=== PATIENT | female | born 1975 | race Caucasian/White ===

== ENCOUNTER 2016-12-15 20:47 | Emergency (ER) | payer OTHER ==
[2014-01-23 17:12] VITALS: BMI 45.0
[~2016-12-15 20:47] MED LIST: HYDROCODONE-APA1 TAB PO
== END 2016-12-16 00:10 | disposition home or self-care (01) ==
LOC: D.ER 20:47
DX: S90.861A Insect bite (nonvenomous), right foot, initial encounter (principal); W57.XXXA Bitten or stung by nonvenomous insect and other nonvenomous arthropods, initial encounter; Y93.89 Activity, other specified; Y92.89 Other specified places as the place of occurrence of the external cause; T78.40XA Allergy, unspecified, initial encounter; X58.XXXA Exposure to other specified factors, initial encounter; L03.115 Cellulitis of right lower limb; F17.200 Nicotine dependence, unspecified, uncomplicated

== ENCOUNTER 2020-10-17 21:23 | Inpatient (IN) | payer OTHER ==
[~2020-10-17] VITALS: Ht 165.1 cm; Wt 113.4 kg
[2020-10-17] MEDS ORDERED: CIPRO500 MG PO (21:42)
[2020-10-17] MEDS ORDERED: MACROBID100 MG PO (21:42)
[2020-10-17] MEDS ORDERED: LISINOPRIL5 MG PO (21:42)
[2020-10-17] MEDS ORDERED: HYDROCHLOROTH12.5 M1 PO (21:44)
[2020-10-17] MEDS ORDERED: GLUCOPHAGE500 MG PO (21:44)
[2020-10-17 22:12] LABS: BASOPHILS 0.3 % (0-2); BILIRUBIN 3+ (NEGATIVE); EOSINOPHILS 2.9 % (0-7); HEMATOCRIT 39.9 % (36.0-48.0); HEMOGLOBIN 13.4 g/dL (12-16); IMMATURE GRANULOCYTES 0.8 % (0-5); KETONE NEGATIVE (NEGATIVE); LYMPHOCYTE ABS# 1.54 10x3/uL (1.18-3.74); LYMPHOCYTES 23.8 % (15-50); MCH 29.5 pg (26.0-34.0); MCHC 33.6 g/dL (31.0-37.0); MCV 87.9 fL (80.0-100.0); MEAN PLATELET VOLUME 9.7 fL (7.4-10.4); MONOCYTES 8.3 % (2-11); NEUTROPHIL ABS# 4.13 10x3/uL (1.56-6.13); NEUTROPHILS 63.9 % (40-80); NITRITE NEGATIVE (NEGATIVE); RBC 4.54 10x6/uL (4.00-5.40); RDW 17.3 % (11.5-14.5); UROBILINOGEN NORMAL mg/dL (< 2); WBC 6.5 10x3/uL (4.8-10.8)
[2020-10-17 22:17] LABS: BACTERIA MODERATE HPF (NONE SEEN)
[2020-10-17 22:19] LABS: PLATELET COUNT 235 10x3/uL (130-400)
[2020-10-17 22:26] LABS: CALC OSMOLALITY 253 mosm/kg (275-300); CALCIUM 8.3 mg/dL (8.5-10.1); CARBON DIOXIDE 24.7 mmol/L (21.0-32.0); CHLORIDE - SERUM 96 mmol/L (98-107); CREATININE - SERUM 0.7 mg/dL (0.6-1.3); GLUCOSE 109 mg/dL (74-106); POTASSIUM - SERUM 3.6 mmol/L (3.5-5.1); SODIUM 127 mmol/L (136-145); UREA NITROGEN 7 mg/dL (7-18); eGFR NON AFRICAN AMERICAN > 90 mL/min (90-120)
[2020-10-17 22:35] LABS: ALBUMIN 2.8 g/dL (3.4-5.0); ALKALINE PHOSPHATASE 318 U/L (30-120); ALT (SGPT) 447 U/L (10-68); AMYLASE - SERUM 44 U/L (25-115); LIPASE 181 U/L (73-393); PROTEIN - SERUM 7.5 g/dL (6.4-8.2)
[2020-10-17 22:49] LABS: TROPONIN-I < 0.017 ng/mL (0.000-0.060)
[2020-10-18 00:03] VITALS: BP 135/75
--- NOTE | 2020-10-18 05:22 | NUR ---
REPORT TO [facility]
[2020-10-18 06:17] VITALS: Ht 165.1 cm; Wt 113.4 kg
--- NOTE | 2020-10-18 07:00 | NUR ---
PATIENT IS RESTING THE AM, NURSE WAKES PATIENT SHE WALKS IN ROOM. PLAN OF CARE REVIEWED AND ASSESSMENT HAS BEEN COMPLETED. NAD NOTED. CALL LIGHT IN REACH
[2020-10-18 09:00] VITALS: BP 116/52
[2020-10-18 10:20] LABS: BASOPHILS 0.4 % (0-2); EOSINOPHILS 3.3 % (0-7); HEMATOCRIT 38.4 % (36.0-48.0); HEMOGLOBIN 12.8 g/dL (12-16); LYMPHOCYTE ABS# 1.26 10x3/uL (1.18-3.74); LYMPHOCYTES 24.6 % (15-50); MCH 29.7 pg (26.0-34.0); MCHC 33.3 g/dL (31.0-37.0); MCV 89.1 fL (80.0-100.0); MEAN PLATELET VOLUME 9.8 fL (7.4-10.4); MONOCYTES 7.6 % (2-11); NEUTROPHIL ABS# 3.23 10x3/uL (1.56-6.13); NEUTROPHILS 63.1 % (40-80); PLATELET COUNT 233 10x3/uL (130-400); RBC 4.31 10x6/uL (4.00-5.40); RDW 17.5 % (11.5-14.5); WBC 5.1 10x3/uL (4.8-10.8)
[2020-10-18 10:39] LABS: APTT 28.9 SECONDS (22.8-39.4); INR 1.1 (0.85-1.17); PROTIME 13.2 SECONDS (11.6-15.0)
[2020-10-18 10:49] LABS: ALBUMIN 2.6 g/dL (3.4-5.0); ALKALINE PHOSPHATASE 307 U/L (30-120); ALT (SGPT) 362 U/L (10-68); BILIRUBIN - TOTAL 7.63 mg/dL (0.2-1.3); CALC OSMOLALITY 263 mosm/kg (275-300); CALCIUM 8.6 mg/dL (8.5-10.1); CARBON DIOXIDE 25.6 mmol/L (21.0-32.0); CHLORIDE - SERUM 100 mmol/L (98-107); CHOL - HDL RATIO 28.4 ratio (2.3-4.1); CHOLESTEROL, TOTAL 227 mg/dL (0-200); CREATININE - SERUM 0.6 mg/dL (0.6-1.3); GLUCOSE 102 mg/dL (74-106); HDL CHOLESTEROL 8 mg/dL (32-96); LDL CHOLESTEROL 149 mg/dL (0-100); LDL-HDL RATIO 18.6 ratio (1.5-3.5); MAGNESIUM - SERUM 2.2 mg/dL (1.8-2.4); PHOSPHOROUS 3.3 mg/dL (2.5-4.9); POTASSIUM - SERUM 3.5 mmol/L (3.5-5.1); PRO BNP 62 pg/mL (0-125); PROTEIN - SERUM 7.1 g/dL (6.4-8.2); SODIUM 133 mmol/L (136-145); THYROID STIMULATING HORMONE 2.02 uIU/mL (0.36-3.74); TRIGLYCERIDE 353 mg/dL (30-200); UREA NITROGEN 6 mg/dL (7-18); eGFR NON AFRICAN AMERICAN > 90 mL/min (90-120)
[2020-10-18] MEDS ORDERED: GLUCOPHAGE500 MG PO (12:48)
[2020-10-18] MEDS ORDERED: HYDROCHLOROTHIA25 MG PO (12:48)
[2020-10-18 13:35] VITALS: BP 133/77
--- NOTE | 2020-10-18 19:02 | NUR ---
LYING IN BED AWAKE, ALERT, ORIENTED. RESP EVEN AND UNLABORED ON RA. NO DISTRESS NOTED, NO NEEDS VOICED.
[2020-10-18 20:00] VITALS: BP 142/88
--- NOTE | 2020-10-18 21:13 | NUR ---
PT HAD SHOWER AND BED LINEN CHANGED AT THIS TIME.
[2020-10-19] VITALS: BP 169/84
[2020-10-19 04:00] VITALS: BP 142/82
--- NOTE | 2020-10-19 05:32 | NUR ---
LYING IN BED W/EYES CLOSED, AROUSES EASILY TO VERBAL STIMULI. NO DISTRESS NOTED. DENIES ANY NEEDS.
[2020-10-19 05:40] LABS: BASOPHILS 0.2 % (0-2); EOSINOPHILS 3.5 % (0-7); HEMATOCRIT 35.9 % (36.0-48.0); IMMATURE GRANULOCYTES 0.4 % (0-5); LYMPHOCYTE ABS# 1.24 10x3/uL (1.18-3.74); LYMPHOCYTES 27.4 % (15-50); MCH 29.4 pg (26.0-34.0); MCHC 33.4 g/dL (31.0-37.0); MEAN PLATELET VOLUME 9.9 fL (7.4-10.4); MONOCYTES 8.6 % (2-11); NEUTROPHILS 59.9 % (40-80); PLATELET COUNT 238 10x3/uL (130-400); RBC 4.08 10x6/uL (4.00-5.40); RDW 17.7 % (11.5-14.5); WBC 4.5 10x3/uL (4.8-10.8)
[2020-10-19 06:09] LABS: ALBUMIN 2.3 g/dL (3.4-5.0); ALKALINE PHOSPHATASE 330 U/L (30-120); ALT (SGPT) 282 U/L (10-68); BILIRUBIN - TOTAL 6.39 mg/dL (0.2-1.3); CALC OSMOLALITY 265 mosm/kg (275-300); CALCIUM 7.9 mg/dL (8.5-10.1); CHLORIDE - SERUM 101 mmol/L (98-107); GLUCOSE 99 mg/dL (74-106); POTASSIUM - SERUM 3.6 mmol/L (3.5-5.1); PROTEIN - SERUM 6.7 g/dL (6.4-8.2); SODIUM 134 mmol/L (136-145); UREA NITROGEN 6 mg/dL (7-18); eGFR NON AFRICAN AMERICAN 82 mL/min (90-120)
[2020-10-19 06:10] LABS: CREATININE - SERUM 0.8 mg/dL (0.6-1.3)
--- NOTE | 2020-10-19 07:30 | NUR ---
PATIENT IS SITTING UP IN BED THIS AM ON HER PHONE. PLAN OF CARE REVIEWED AND ASSESSMENT HAS BEEN COMPLETED. PATIENT DENIES PAIN OR NEEDS. CALL LIGHT IN REACH
[2020-10-19 07:59] VITALS: BP 125/73
[2020-10-19] MEDS ORDERED: LEVOFLOXACIN500 MG PO (10:36)
[2020-10-19 11:11] LABS: HEPATITIS C ANTIBODY <0.1 S/CO RAT (0.0-0.9)
--- NOTE | 2020-10-19 11:23 | MORECARE ---
CASE MANAGEMENT DISCHARGE SUMMARY PATIENT: TED LONG UNIT: [id number] ADM DATE: 10/18/20 AGE: 45 : [birth year] SEX: F ROOM/BED: D.2132 AUTHOR: MOSHEDOC PHYSICIAN: REFERRING PHYSICIAN: RAMY HERRON MD DATE OF SERVICE: 10/19/20 Discharge Plan Patient Name: TED LONG Facility: [facility]:[place] : 1975 Planned Disposition: Home Anticipated Discharge Date: Discharge Date: Expected LOS: Initial Reviewer: [email or web address] Initial Review Date: 10/19/2020 Generated: 10/19/20 12:22 pm Comments DCP- Discharge Planning Updated by [email or web address]: Huyen Archibald on 10/19/20 10:[address] Patient Name: TED LONG Admission Status: ER Accout number: [id number] Admission Date: 10-18-2020 : 1975 Admission Diagnosis: Attending: RAMY HERRON Current LOS: 1 Anticipated DC Date: Planned Disposition: Home Primary Insurance: [employer] Discharge Planning Comments: CM met with patient to complete initial dc planning assessment. CM educated patient on the CM role and verbal consent given by patient to complete assessment. CM verified patient's address, phone number, and emergency contact phone numbers. Patient lives at home with her son. At discharge patient plans to return and feels this is a safe discharge. CM discussed availability of home health, rehab services, and medical equipment. Patient denied known discharge needs at this time. Transportation provider at discharge will be herself, she states her son and his girlfriend dropped off her car, states she feels safe to drive. CM will continue to follow and will assist as needed with dc plans/needs. Renderer: Huyen Archibald DCPIA - Discharge Planning Initial Assessment Updated by [email or web address]: Huyen Archibald on 10/19/20 11:16 am * Is the patient Alert and Oriented? Yes * How many steps to enter\exit or inside your home? 5/0 * PCP Dr. Pagan * Pharmacy [facility] on [address] * Preadmission Environment Home with Family * ADLs Independent * Equipment None * List name and contact numbers for known caregivers / representatives who currently or will assist patient after discharge: Perry Long - curt - [phone] * Verbal permission to speak to the caregivers and representatives has been obtained from the patient. Yes * Community resources currently utilized None * Additional services required to return to the preadmission environment? No * Can the patient safely return to the preadmission environment? Yes * Has this patient been hospitalized within the prior 30 days at any hospital? No Patient Name: TED LONG Page 80997 at 1123 All edits/amendments must be made on the electronic document DICTATION DATE: 10/19/20 112 SITE RELIABILITY ENGINEER: CATARINA 10/19/201121 RPT#: [id number] DC DATE: STATUS: ADM IN [address] [place] [address] END OF REPORT
--- NOTE | 2020-10-19 12:01 | NUR ---
NURSE COMPLETES DC INSTRUCTIONS AT THIS TIME. PATIENT GIVEN DC MEDICATION LIST. IV REMOVED W CATH TIP INTACT. PATIENT DENIES QUESTIONS OR NEEDS. CALL LIGHT IN REACH
--- NOTE | 2020-10-19 12:15 | NUR ---
NURSE WHEELS PATIENT OUT TO PERSONAL CAR. BELONGINGS IN HAND. DC PAPERWORK IN HAND.
--- NOTE | 2020-10-19 14:21 | NUR ---
CONTACED PATIENT VIA PHONE AND ADVISED HER OF POSITIVE HEP-A RESULT. ADVISED HER TO MAKE A FOLLOW UP APPT. WITH HER PCP. PATIENT STATES SHE IS CURRENTLY UNEMPLOYED.
[2020-10-20 09:14] LABS: ANA REFLEX - DIRECT Negative (Negative)
--- NOTE | 2020-10-20 09:22 | MORECARE ---
CASE MANAGEMENT DISCHARGE SUMMARY PATIENT: TED LONG UNIT: [id number] ADM DATE: 10/18/20 AGE: 45 : 73 SEX: F ROOM/BED: D.2132 AUTHOR: MOSHEDOC PHYSICIAN: REFERRING PHYSICIAN: RAMY HERRON MD DATE OF SERVICE: 10/20/20 Discharge Plan Patient Name: TED LONG Facility: [facility]:[place] : 1975 Planned Disposition: Home Anticipated Discharge Date: Discharge Date: 10/19/2020 Expected LOS: Initial Reviewer: [email or web address] Initial Review Date: 10/19/2020 Generated: 10/20/20 10:21 am Comments DCP- Discharge Planning Updated by [email or web address]: Huyen Archibald on 10/19/20 10:[address] Patient Name: TED LONG Admission Status: ER Accout number: [id number] Admission Date: 10-18-2020 : 1975 Admission Diagnosis: Attending: RAMY HERRON Current LOS: 1 Anticipated DC Date: Planned Disposition: Home Primary Insurance: [employer] Discharge Planning Comments: CM met with patient to complete initial dc planning assessment. CM educated patient on the CM role and verbal consent given by patient to complete assessment. CM verified patient's address, phone number, and emergency contact phone numbers. Patient lives at home with her son. At discharge patient plans to return and feels this is a safe discharge. CM discussed availability of home health, rehab services, and medical equipment. Patient denied known discharge needs at this time. Transportation provider at discharge will be herself, she states her son and his girlfriend dropped off her car, states she feels safe to drive. CM will continue to follow and will assist as needed with dc plans/needs. Cupola Liner Helper: Huyen Archibald DCPIA - Discharge Planning Initial Assessment Updated by [email or web address]: Huyen Archibald on 10/19/20 11:16 am * Is the patient Alert and Oriented? Yes * How many steps to enter\exit or inside your home? 5/0 * PCP Dr. Pagan * Pharmacy [facility] on [place] * Preadmission Environment Home with Family * ADLs Independent * Equipment None * List name and contact numbers for known caregivers / representatives who currently or will assist patient after discharge: Perry Long - curt - [phone] * Verbal permission to speak to the caregivers and representatives has been obtained from the patient. Yes * Community resources currently utilized None * Additional services required to return to the preadmission environment? No * Can the patient safely return to the preadmission environment? Yes * Has this patient been hospitalized within the prior 30 days at any hospital? No Last DP export: 10/19/20 10:22 am Patient Name: TED LONG Page 94092 at 0922 All edits/amendments must be made on the electronic document DICTATION DATE: 10/20/20920 MANAGER OF HOUSEKEEPING: CATARINA 10/20/20920 RPT#: [id number] DC DATE:10/19/20 STATUS: DIS IN [facility] [address] [place] [address] END OF REPORT
== END 2020-10-19 12:21 | disposition home or self-care (01) | DRG 442 ==
LOC: D.ER 21:23 → D.EDHOLD 10-18 00:39 → D.M2 10-18 00:39
PROVIDERS: Emergency Medicine; Internal Medicine Gastroenterology; ADMIT Emergency Medicine; ATTEND Emergency Medicine
DX: B15.9 Hepatitis A without hepatic coma (principal); N39.0 Urinary tract infection, site not specified; E87.1 Hypo-osmolality and hyponatremia; Z68.41 Body mass index [BMI] 40.0-44.9, adult; F19.10 Other psychoactive substance abuse, uncomplicated; E66.01 Morbid (severe) obesity due to excess calories; F17.200 Nicotine dependence, unspecified, uncomplicated; E11.51 Type 2 diabetes mellitus with diabetic peripheral angiopathy without gangrene; I10 Essential (primary) hypertension

== ENCOUNTER 2020-11-08 13:30 | Outpatient (CLI) | payer OTHER ==
[~2020-11-08 13:30] MED LIST changes: +CIPRO500 MG PO; +GLUCOPHAGE500 MG PO; +HYDROCHLOROTH12.5 M1 PO; +HYDROCHLOROTHIA25 MG PO; +LEVOFLOXACIN500 MG PO; +LISINOPRIL5 MG PO; +MACROBID100 MG PO
== END 2020-11-08 23:59 | disposition home or self-care (01) ==
LOC: D.MAMMO 13:30
PROVIDERS: ATTEND Family Medicine
DX: R92.8 Other abnormal and inconclusive findings on diagnostic imaging of breast (principal)

== ENCOUNTER 2021-01-27 08:17 | Day surgery (SDC) | payer OTHER ==
[~2021-01-27] VITALS: Ht 165.1 cm; Wt 100.0 kg
[2021-01-27 08:42] LABS: ANION GAP 10.4 mmol/L (8-16); CALCIUM 8.8 mg/dL (8.5-10.1); CARBON DIOXIDE 31.6 mmol/L (21.0-32.0); CREATININE - SERUM 1.1 mg/dL (0.6-1.3)
[2021-01-27 08:44] LABS: BASOPHILS 0.9 % (0-2); HEMATOCRIT 44.2 % (36.0-48.0); HEMOGLOBIN 15.5 g/dL (12-16); LYMPHOCYTES 24.4 % (15-50); MCV 91.4 fL (80.0-100.0); MEAN PLATELET VOLUME 7.6 fL (7.4-10.4); MONOCYTES 5.4 % (2-11); NEUTROPHILS 67.3 % (40-80); PLATELET COUNT 283 10x3/uL (130-400); RBC 4.84 10x6/uL (4.00-5.40); RDW 14.1 % (11.5-14.5); WBC 9.8 10x3/uL (4.8-10.8)
[2021-01-27 09:15] VITALS: Ht 165.1 cm; Wt 100.0 kg
--- NOTE | 2021-01-27 10:40 | NUR ---
DR ESTRADA AT BEDSIDE 1043 DC TEACHING COMPLETE. VERBALIZED UNDERSTANDING. 1157 PIV REMOVED, CATHETER INTACT. PT DRESSING SELF. 1104 PT DC'D VIA WC ACCOMPANIED BY DANIEL COOK TO POV WITH ALL BELONGINGS AND DC PACKET. SON DRIVING.
--- NOTE | 2021-01-27 12:40 | OP ---
PATIENT NAME: TED MARSHALL MEDICAL RECORD: [id number] :[birth year] LOCATION:[facility] ADMISSION DATE: SURGEON: MYNOR VOGEL MD DATE OF OPERATION: 01/27/2021 DATE OF SERVICE: 01/27/2021 PREOPERATIVE DIAGNOSES: Ms. Marshall is a pleasant 45-year-old female who comes in with a history of dysphagia and abdominal pain. MEDICATION: Propofol per anesthesia 230 mg. DESCRIPTION OF PROCEDURE: Upper endoscopy was performed. The endoscope was advanced through the mouth and advanced to the second part of the duodenum. The proximal and mid esophagus were normal. In the distal esophagus was a mild esophageal stricture. This was dilated with a 18, 19 and 20 mm through the scope balloon. In the gastric body was erythema consistent with gastritis. Random gastric biopsies were taken. The duodenum was normal. Small bowel biopsies were taken. The patient tolerated the procedure well. FINAL DIAGNOSES: Mild distal esophageal stricture, gastritis. Duodenum normal. PLAN: Check histology results. Advance diet. Return to GI office. I will write a prescription for a proton pump inhibitor for this patient and more recommendations will be made after biopsy results. TRANSINT:[id number] Voice Confirmation ID: [id number] DOCUMENT ID: [id number] MYNOR VOGEL MD at 1240 CC: [id number] DICTATION DATE: 01/27/21 1001 [facility] SUPERVISOR: 01/27/21 1012 [facility] 01/27/21 [id number] [place] [address]
== END 2021-01-27 11:04 | disposition home or self-care (01) ==
LOC: D.OPS 08:17
PROVIDERS: Anesthesiology; ATTEND Internal Medicine Gastroenterology
DX: R13.10 Dysphagia, unspecified (principal); R10.13 Epigastric pain; K22.2 Esophageal obstruction; K29.70 Gastritis, unspecified, without bleeding; E80.7 Disorder of bilirubin metabolism, unspecified; B15.9 Hepatitis A without hepatic coma